=== PATIENT | male | born 1960 | race African-American/Black ===

== ENCOUNTER → 2019-07-05 | Outpatient (CLI) | payer OTHER ==
--- NOTE | 2019-07-05 13:46 | US ---
EXAMINATION TYPE: US kidneys/renal and bladder DATE OF EXAM: 07/05/2019 COMPARISON: CT 05/03/16 CLINICAL HISTORY: N39.0 recurrent UTI. EXAM MEASUREMENTS: Right Kidney: 12.8 x 7.4 x 6.3 cm Left Kidney: 12.0 x 5.8 x 5.7 cm Post Void Residual Volume: 12.6 mL Right Kidney: No hydronephrosis, nephrolithiasis or masses seen Left Kidney: No hydronephrosis, nephrolithiasis or masses seen Bladder: wnl Bilateral Jets seen: Yes Normal Post Void Residual: Yes IMPRESSION: No acute process.
--- NOTE | 2019-07-05 14:00 | XR ---
EXAMINATION TYPE: XR shoulder complete LT DATE OF EXAM: 07/05/2019 COMPARISON: NONE HISTORY: Pain TECHNIQUE: Three views are submitted. FINDINGS: The osseous structures are intact. There is no acute fracture or dislocation. Mild arthropathy of th e AC joint. IMPRESSION: 1. Mild AC joint arthropathy.
== END | disposition home or self-care (01) ==
LOC: RADUSWWP 13:04
PROVIDERS: ATTEND Internal Medicine
DX: N39.0 Urinary tract infection, site not specified (principal); M19.012 Primary osteoarthritis, left shoulder
CPT/HCPCS: 76770

== ENCOUNTER 2019-07-18 06:56 | Emergency (ER) | payer OTHER ==
[2019-07-18 07:18] VITALS: BP 140/80; PULSE 80; TEMP 98.4
[2019-07-18 07:38] VITALS: RESP 16
--- NOTE | 2019-07-18 07:44 | ED ---
General Adult HPI - General Chief complaint: Upper Respiratory Infection Stated complaint: sandrine Time Seen by Provider: 07/18/19 07:10 Source: patient, RN notes reviewed, old records reviewed Mode of arrival: ambulatory Limitations: no limitations - History of Present Illness Initial comments: 59-year-old male presenting with 1 week of nasal congestion, cough, sore throat. Patient has had minimally productive cough as well as nasal congestion and nasal drainage. He's had a sore throat. Denies myalgias. Denies fever or chills. Denies abdominal pain nausea vomiting. Denies chest pain. He states that some mild dyspnea with his cough. He is a current smoker. He has history of hypertension and diabetes. - Related Data Home Medications Medication Instructions Recorded Confirmed Lisinopril/Hydrochlorothiazide 1 tab PO DAILY 05/03/16 05/03/16 [Zestoretic 20-25] Metoprolol Succinate [Toprol XL] 1 tab PO DAILY 05/03/16 05/03/16 Previous Rx's Medication Instructions Recorded Acetaminophen with Codeine 1 tab PO Q4H PRN #20 tab 05/03/16 [Tylenol w/codeine #3] Omeprazole 20 mg PO DAILY #30 cap 05/03/16 Ondansetron HCl [Zofran] 4 mg PO Q8HR #30 tab 05/03/16 Albuterol Inhaler [Ventolin Hfa 1 - 2 puff INHALATION Q4HR PRN #1 07/18/19 Inhaler] inhaler Azithromycin [Zithromax Z-pack] 0 mg PO DIRECTED #6 tab 07/18/19 methylPREDNISolone Dose Pack 4 mg PO DIRECTED #21 package 07/18/19 [Medrol Dose Pack] Allergies Allergy/AdvReac Type Severity Reaction Status Date / Time No Known Allergies Allergy Verified 07/18/19 07:17 Review of Systems ROS Statement: Those systems with pertinent positive or pertinent negative responses have been documented in the HPI. ROS Other: All systems not noted in ROS Statement are negative. Constitutional: Denies: fever, chills ENT: Reports: throat pain, congestion. Denies: ear pain Respiratory: Reports: cough Cardiovascular: Denies: chest pain, palpitations Endocrine: Reports: fatigue Gastrointestinal: Denies: abdominal pain, nausea, vomiting Genitourinary: Denies: urgency, dysuria Musculoskeletal: Denies: back pain Skin: Denies: rash, lesions Neurological: Denies: weakness, numbness Past Medical History Past Medical History: Diabetes Mellitus, Hyperlipidemia, Hypertension History of Any Multi-Drug Resistant Organisms: None Reported Past Surgical History: No Surgical Hx Reported Past Psychological History: No Psychological Hx Reported Smoking Status: Current every day smoker Past Alcohol Use History: Occasional Past Drug Use History: None Reported General Exam Limitations: no limitations General appearance: alert, in no apparent distress Head exam: Present: atraumatic, normocephalic Eye exam: Present: normal appearance, PERRL. Absent: conjunctival injection, periorbital swelling, periorbital tenderness ENT exam: Present: mucous membranes moist. Absent: normal oropharynx (Pharyngeal erythema, no tonsillar swelling or exudate, symmetric posterior oropharynx) Neck exam: Present: normal inspection. Absent: tenderness Respiratory exam: Present: rhonchi (Left midlung field). Absent: respiratory distress Cardiovascular Exam: Present: regular rate, normal rhythm GI/Abdominal exam: Present: soft. Absent: distended, tenderness Rectal exam: Present: deferred Extremities exam: Present: normal inspection, normal capillary refill. Absent: pedal edema, calf tenderness Neurological exam: Present: alert, oriented X3, CN II-XII intact. Absent: motor sensory deficit Psychiatric exam: Present: normal affect, normal mood Course Vital Signs 07/18/19 07/18/19 07:15 07:36 Temperature 98.4 F Pulse Rate 80 Respiratory 20 16 Rate Blood Pressure 140/80 O2 Sat by Pulse 96 Oximetry Medical Decision Making - Medical Decision Making 59-year-old male with one-week history of cough, congestion, sore throat. Patient has rhonchi and left midlung field. X-rays obtained, Increased lung markings consistent with chronic bronchitis. No focal pneumonia. Patient is encouraged to abstain from smoking. Patient is otherwise well-appearing. Given his current smoking history he will be treated with course of albuterol, steroids, and azithromycin. Disposition Clinical Impression: Bronchitis Disposition: HOME SELF-CARE Condition: Good Instructions (If sedation given, give patient instructions): Acute Bronchitis (ED), How to Stop Smoking (ED) Prescriptions: methylPREDNISolone Dose Pack [Medrol Dose Pack] 4 mg PO DIRECTED #21 package Albuterol Inhaler [Ventolin Hfa Inhaler] 1 - 2 puff INHALATION Q4HR PRN #1 inhaler PRN Reason: Shortness Of Breath Azithromycin [Zithromax Z-pack] 0 mg PO DIRECTED #6 tab Is patient prescribed a controlled substance at d/c from ED?: No Referrals: Val Yang MD [Primary Care Provider] - 1-2 days Time of Disposition: 07:44
--- NOTE | 2019-07-18 08:02 | XR ---
EXAMINATION TYPE: XR chest 2V DATE OF EXAM: 07/18/2019 HISTORY: cough. REFERENCE: NONE. FINDINGS: There are mild increased markings throughout the chest. There is no focal consolidation or definite edema. The heart is not enlarged. Pleural spaces are clear. IMPRESSION: MILD INCREASED MARKINGS MAY BE ON THE BASIS OF CHRONIC BRONCHITIS. NO LOBAR CONSOLIDATION IS SEEN.
== END 2019-07-18 08:19 | disposition home or self-care (01) ==
LOC: EC 06:56
DX: J40 Bronchitis, not specified as acute or chronic (principal); J02.9 Acute pharyngitis, unspecified; R09.81 Nasal congestion; J34.89 Other specified disorders of nose and nasal sinuses; I10 Essential (primary) hypertension; F17.200 Nicotine dependence, unspecified, uncomplicated; Z79.899 Other long term (current) drug therapy
CPT/HCPCS: 71046; 99285

== ENCOUNTER → 2021-11-01 | Outpatient (CLI) | payer OTHER ==
--- NOTE | 2021-11-01 15:39 | US ---
EXAMINATION TYPE: US kidneys/renal and bladder DATE OF EXAM: 11/01/2021 COMPARISON: 07/05/2019 CLINICAL HISTORY: 61-year-old male N39.0 UTI. Abnormal frequency TECHNIQUE: Multiple sonographic images of the kidneys and bladder are obtained. FINDINGS: EXAM MEASUREMENTS: Right Kidney: 11.6 x 5.8 x 6.5 cm Left Kidney: 11.3 x 5.3 x 5.3 cm Right Kidney: No hydronephrosis or masses seen Left Kidney: No hydronephrosis or masses seen Bladder: Internal echoes seen Bilateral Jets seen IMPRESSION: 1. No hydronephrosis. 2. Some floating debris within the bladder. Correlate with urinalysis.
== END | disposition home or self-care (01) ==
LOC: RADUSWWP 12:37
PROVIDERS: ATTEND Family Medicine
DX: N39.0 Urinary tract infection, site not specified (principal)
CPT/HCPCS: 76770

== ENCOUNTER → 2021-12-24 | Outpatient (CLI) | payer OTHER ==
--- NOTE | 2021-12-24 09:57 | CT ---
EXAMINATION TYPE: CT urogram wo/w con DATE OF EXAM: 12/24/2021 INDICATION: microscopic hematuria, bladder pain CT DLP: 3580 mGy.cm Automated Exposure Control for Dose Reduction was Utilized. TECHNIQUE AND CONTRAST: CT scan of the abdomen and pelvis is performed without and with IV Contrast, as per CT urogram protoc ol. The patient injected with 100 mL of Isovue 300. 3-D reconstruction images were generated on an in dependent workstation and reviewed. COMPARISON: CT dated 05/03/2016 FINDINGS: No radiodense urinary calculi. No hydroureter or hydronephrosis. Bilateral perinephric fat stranding and reactive fluid, nonspecific. No definite renal lesion identified. No filling defect seen within t he renal collecting system or the opacified portion of the ureters. Slightly prominent prostate. Mild diffuse wall thickening of the urinary bladder, nonspecific, please correlate with urinalysis results to rule out mild cystitis. No other definite urinary bladder abnor mality identified. Unremarkable seminal vesicles. Bulky liver with evident hepatic steatosis. With this limitation, no definite hepatic focal lesion id entified. Unremarkable gallbladder, spleen, pancreas and adrenals. Scattered arterial atherosclerotic calcifications. Unremarkable stomach, duodenum and small bowel. Scattered uncomplicated colonic diverticulosis. No gross colonic mass however a small lesion cannot b e excluded. No suspicious lymphadenopathy or sizable ascites. Unremarkable lung bases. Millimetric sc lerotic foci in the pelvic bones, possibly representing bone islands. No aggressive bone lesion. IMPRESSION: No radiodense urinary calculi. No definite suspicious urinary lesion identified. Diffuse wall thicken ing of the urinary bladder which could be related to mild cystitis, please correlate clinically and w ith urinalysis results. Other incidental findings as described above.
== END | disposition home or self-care (01) ==
LOC: RADCTMAIN 06:58
PROVIDERS: ATTEND Urology
DX: N32.89 Other specified disorders of bladder (principal)
CPT/HCPCS: 82565; 84520; 74178; 36415; 74400; Q9967

== ENCOUNTER → 2022-06-04 | Outpatient (CLI) | payer OTHER ==
[2022-06-04 14:18] LABS: Basophils # (A) 0.08 X 10*3/uL (0.00-0.10); Basophils % (A) 0.9 %; Eosinophils # (A) 0.18 X 10*3/uL (0.04-0.35); Eosinophils % (A) 2.1 %; HCT 46.2 % (39.6-50.0); HGB 15.1 g/dL (13.0-17.0); Immature Grans, Automated 0.6 %; Lymphocytes # (A) 4.31 X 10*3/uL (0.90-5.00); Lymphocytes % (A) 49.4 %; MCH 28.3 pg (27.0-32.0); MCHC 32.7 g/dL (32.0-37.0); MCV 86.7 fL (80.0-97.0); Monocytes # (A) 0.48 X 10*3/uL (0.20-1.00); Monocytes % (A) 5.5 %; NRBC Per 100 WBC 0 /100 WBCS (0.0-0.0); Neutrophils # (A) 3.63 X 10*3/uL (1.80-7.70); Neutrophils % (A) 41.5 %; Platelet Count 190 X 10*3/uL (140-440); RBC 5.33 X 10*6/uL (4.40-5.60); RDW 13.1 % (11.5-14.5); WBC 8.73 X 10*3/uL (4.50-10.00)
[2022-06-04 15:07] LABS: ALT 68 U/L (10-49); AST 29 U/L (14-35); African American GFR (CKD) 88.8 (60.0-200.0); Albumin 4.5 g/dL (3.8-4.9); Alkaline Phosphatase 78 U/L (41-126); Calcium 9.8 mg/dL (8.7-10.3); Carbon Dioxide 26.1 mmol/L (20.0-27.5); Chloride 100 mmol/L (96-109); Chol/HDL Ratio 9.03 Ratio; Globulin 3.2 g/dL (1.6-3.3); Glucose 188 mg/dL (70-110); LDL Cholesterol,Calculated 169.7 mg/dL (0.0-131.0); Non-African American GFR(CKD) 76.6 (60.0-200.0); Potassium 4.6 mmol/L (3.5-5.5); Sodium 138 mmol/L (135-145); Total Protein 7.7 g/dL (6.2-8.2)
== END | disposition home or self-care (01) ==
LOC: LABWHC1 09:26
PROVIDERS: ATTEND Family Medicine
DX: E11.9 Type 2 diabetes mellitus without complications (principal)
CPT/HCPCS: 36415; 80053; 80061; 83036; 85025

== ENCOUNTER 2022-06-25 12:04 | Observation (INO) | payer OTHER ==
--- NOTE | 2022-06-25 13:10 | ED ---
General Adult HPI - General Chief complaint: Dizziness Stated complaint: dizziness - sent by pcp Time Seen by Provider: 06/25/22 12:30 Source: patient, RN notes reviewed, old records reviewed Mode of arrival: ambulatory Limitations: no limitations - History of Present Illness Initial comments: This is a 62-year-old male with a past medical history significant for diabetes hypertension high cholesterol and smoking. Patient states since Friday he's bee n having dizzy episodes where he feels like he is moving relative to the surrounding area. Patient states he has had it occurred multiple times throughout today and it does seem to worsen most of the time with motion. Patient states when it occurs it feels like he has to grab onto something or els e he might fall over. Patient denies any near syncopal or syncopal episode. Patient states he never feels like he is going to pass out. Patient states she has a little bit of a right-sided headache. Patient denies any chest pain or palpitations or shortness of breath. Patient denies any recent fever chills or cough. Patient states his been ongoing every single day for the last 5 days but there are times during the day that it doesn't seem to be happening. Patient states it's much worse when he is walking. Patient denies any numbness or weakness or speech problems. Patient has not experienced this before. Patient denies any tinnitus or new deafness. Currently patient is having no symptoms of dizziness - Related Data Home Medications Medication Instructions Recorded Confirmed Lisinopril/Hydrochlorothiazide 1 tab PO DAILY 05/03/16 06/25/22 [Zestoretic 20-25] Metoprolol Succinate [Toprol XL] 200 mg PO DAILY 05/03/16 06/25/22 Latanoprost [Latanoprost 0.005%] 1 drop BOTH EYES HS 06/25/22 06/25/22 metFORMIN HCL [Glucophage] 500 mg PO BID 06/25/22 06/25/22 Allergies Allergy/AdvReac Type Severity Reaction Status Date / Time No Known Allergies Allergy Verified 06/25/22 14:42 Review of Systems ROS Statement: Those systems with pertinent positive or pertinent negative responses have been documented in the HPI. ROS Other: All systems not noted in ROS Statement are negative. Past Medical History Past Medical History: Diabetes Mellitus, Hyperlipidemia, Hypertension History of Any Multi-Drug Resistant Organisms: None Reported Past Surgical History: No Surgical Hx Reported Past Psychological History: No Psychological Hx Reported Smoking Status: Current every day smoker Past Alcohol Use History: Rare Past Drug Use History: None Reported General Exam - General Exam Comments Initial Comments: GENERAL: Patient is well-developed and well-nourished. Patient is nontoxic and well- hydrated and is in no acute distress. ENT: Neck is soft and supple. No significant lymphadenopathy is noted. Oropharynx is clear. Moist mucous membranes. Neck has full range of motion without eliciting any pain. EYES: The sclera were anicteric and conjunctiva were pink and moist. Extraocular movements were intact and pupils were equal round and reactive to light. Eyelids were unremarkable. PULMONARY: Unlabored respirations. Good breath sounds bilaterally. No audible rales rh onchi or wheezing was noted. CARDIOVASCULAR: There is a regular rate and rhythm without any murmurs gallops or rubs. ABDOMEN: Soft and nontender with normal bowel sounds. SKIN: Skin is clear with no lesions or rashes and otherwise unremarkable. NEUROLOGIC: Patient is alert and oriented x3. Cranial nerves II through XII are grossly intact. Motor and sensory are also intact. Normal speech, volume and content. Symmetrical smile. Cerebellar testing finger to nose is normal bilaterally MUSCULOSKELETAL: Normal extremities with adequate strength and full range of motion. LYMPHATICS: No significant lymphadenopathy is noted PSYCHIATRIC: Normal psychiatric evaluation. Limitations: no limitations Course Vital Signs 06/25/22 06/25/22 06/25/22 12:21 13:13 16:27 Temperature 98 F Pulse Rate 65 77 68 Respiratory 18 16 17 Rate Blood Pressure 162/87 184/90 148/82 O2 Sat by Pulse 97 100 99 Oximetry Medical Decision Making - Medical Decision Making EKG shows sinus rhythm at 70 bpm ID interval is 2:15 QRS is 102 QT interval 408 QTC is 428. Patient's EKG shows no ST segment elevation or depression patient does have Q waves inferiorly in leads 3 and aVF patient is not currently expressing any chest pain and has not expressed any chest pain lately CT of the brain shows no acute abnormality CT angiogram head and neck showed possible stenosis of her vertebral arterie I spoke with Dr. Molina the neurologist and he wanted the patient be admitted so he could further evaluate the patient. I was found physicians they agreed to admit the patient to the patient wrote admitting orders I consulted neurology - Lab Data Result diagrams: 06/25/22 13:07 06/25/22 13:07 Lab Results 06/25/22 06/25/22 06/25/22 Range/Units 13:07 13:07 13:07 WBC 9.1 (3.8-10.6) k/uL RBC 5.33 (4.30-5.90) m/uL Hgb 15.9 (13.0-17.5) gm/dL Hct 46.0 (39.0-53.0) % MCV 86.2 (80.0-100.0) fL MCH 29.9 (25.0-35.0) pg MCHC 34.7 (31.0-37.0) g/dL RDW 12.4 (11.5-15.5) % Plt Count 205 (150-450) k/uL MPV 9.7 Neutrophils % 58 % Lymphocytes % 34 % Monocytes % 4 % Eosinophils % 2 % Basophils % 1 % Neutrophils # 5.3 (1.3-7.7) k/uL Lymphocytes # 3.1 (1.0-4.8) k/uL Monocytes # 0.3 (0-1.0) k/uL Eosinophils # 0.1 (0-0.7) k/uL Basophils # 0.1 (0-0.2) k/uL PT 11.0 (9.0-12.0) sec INR 1.0 (<1.2) APTT 27.8 (22.0-30.0) sec Sodium 138 (137-145) mmol/L Potassium 4.9 (3.5-5.1) mmol/L Chloride 100 (98-107) mmol/L Carbon Dioxide 24 (22-30) mmol/L Anion Gap 14 mmol/L BUN 19 (9-20) mg/dL Creatinine 1.05 (0.66-1.25) mg/dL Est GFR (CKD-EPI)AfAm 88 (>60 ml/min/1.73 sqM) Est GFR (CKD-EPI)NonAf 76 (>60 ml/min/1.73 sqM) Glucose 165 H (74-99) mg/dL Calcium 10.0 (8.4-10.2) mg/dL Magnesium 1.9 (1.6-2.3) mg/dL Total Bilirubin 0.4 (0.2-1.3) mg/dL AST 33 (17-59) U/L ALT 55 H (4-49) U/L Alkaline Phosphatase 86 (38-126) U/L Troponin I (0.000-0.034) ng/mL Total Protein 8.3 H (6.3-8.2) g/dL Albumin 4.9 (3.5-5.0) g/dL 06/25/22 Range/Units 13:07 WBC (3.8-10.6) k/uL RBC (4.30-5.90) m/uL Hgb (13.0-17.5) gm/dL Hct (39.0-53.0) % MCV (80.0-100.0) fL MCH (25.0-35.0) pg MCHC (31.0-37.0) g/dL RDW (11.5-15.5) % Plt Count (150-450) k/uL MPV Neutrophils % % Lymphocytes % % Monocytes % % Eosinophils % % Basophils % % Neutrophils # (1.3-7.7) k/uL Lymphocytes # (1.0-4.8) k/uL Monocytes # (0-1.0) k/uL Eosinophils # (0-0.7) k/uL Basophils # (0-0.2) k/uL PT (9.0-12.0) sec INR (<1.2) APTT (22.0-30.0) sec Sodium (137-145) mmol/L Potassium (3.5-5.1) mmol/L Chloride (98-107) mmol/L Carbon Dioxide (22-30) mmol/L Anion Gap mmol/L BUN (9-20) mg/dL Creatinine (0.66-1.25) mg/dL Est GFR (CKD-EPI)AfAm (>60 ml/min/1.73 sqM) Est GFR (CKD-EPI)NonAf (>60 ml/min/1.73 sqM) Glucose (74-99) mg/dL Calcium (8.4-10.2) mg/dL Magnesium (1.6-2.3) mg/dL Total Bilirubin (0.2-1.3) mg/dL AST (17-59) U/L ALT (4-49) U/L Alkaline Phosphatase (38-126) U/L Troponin I <0.012 (0.000-0.034) ng/mL Total Protein (6.3-8.2) g/dL Albumin (3.5-5.0) g/dL Disposition Clinical Impression: Dizziness, Vertebral artery narrowing Disposition: ADMITTED IP TO THIS HOSP Referrals: Brendan Hinton MD [Primary Care Provider] - 1-2 days Time of Disposition: 16:54
[2022-06-25 13:16] LABS: Basophils # (A) 0.1 k/uL (0-0.2); Basophils % (A) 1 %; Eosinophils # (A) 0.1 k/uL (0-0.7); Eosinophils % (A) 2 %; HGB 15.9 gm/dL (13.0-17.5); Lymphocytes # (A) 3.1 k/uL (1.0-4.8); Lymphocytes % (A) 34 %; MCH 29.9 pg (25.0-35.0); MCHC 34.7 g/dL (31.0-37.0); MCV 86.2 fL (80.0-100.0); Mean Platelet Volume 9.7; Monocytes # (A) 0.3 k/uL (0-1.0); Monocytes % (A) 4 %; Neutrophils # (A) 5.3 k/uL (1.3-7.7); Neutrophils % (A) 58 %; Platelet Count 205 k/uL (150-450); RBC 5.33 m/uL (4.30-5.90); RDW 12.4 % (11.5-15.5); WBC 9.1 k/uL (3.8-10.6)
[2022-06-25 13:27] LABS: Albumin 4.9 g/dL (3.5-5.0); Magnesium 1.9 mg/dL (1.6-2.3); Potassium 4.9 mmol/L (3.5-5.1); Total Bilirubin 0.4 mg/dL (0.2-1.3); Total Protein 8.3 g/dL (6.3-8.2)
--- NOTE | 2022-06-25 14:00 | XR ---
EXAMINATION TYPE: XR chest 2V DATE OF EXAM: 06/25/2022 COMPARISON: 07/18/2019 HISTORY: 62-year-old male with chest pain TECHNIQUE: PA and lateral views FINDINGS: Heart normal size. Aorta and pulmonary vasculature within normal. Mild interstitial prominence is unc hanged. No consolidation or pleural effusion. IMPRESSION: Chronic changes, possible underlying bronchitis or asthma. No focal infiltrate seen.
[2022-06-25 14:01] LABS: Partial Thromboplastin Time 27.8 sec (22.0-30.0)
--- NOTE | 2022-06-25 14:32 | CT ---
EXAMINATION TYPE: CT brain wo con DATE OF EXAM: 06/25/2022 COMPARISON: None HISTORY: Dizziness CT DLP: 1220 mGycm Automated exposure control for dose reduction was used. FINDINGS: Artifact limits assessment of the posterior fossa. Patient has previous stent of hardware. Mild gener alized degenerative change and faint low-attenuation white matter is not. No definite sulcal effaceme nt. No midline shift or mass effect. Orbits are symmetric. Nasal septal deviation. Calvarium intact. Low density seen along the anterior m argin of the left temporal lobe image 26 is likely artifactual. Slight asymmetry in the density of th e left MCA also noted also felt to be most likely related to partial volume averaging or artifactual. CTA [place] recommended for confirmation Craniocervical junction maintained. IMPRESSION: 1. DEGENERATIVE AND NONSPECIFIC WHITE MATTER CHANGE WITH NO DEFINITE ACUTE HEMORRHAGE OR MASS EFFECT. 2. LIMITED ASSESSMENT OF THE POSTERIOR FOSSA DUE TO EXTENSIVE ARTIFACT. 3. THERE IS AN AREA OF LOW DENSITY IN THE ANTERIOR MARGIN OF THE LEFT TEMPORAL LOBE FELT TO BE MOST L IKELY ARTIFACTUAL 26. THERE IS SLIGHTLY INCREASED DENSITY IN THE LEFT MCA BRANCH. THIS ALSO COULD BE ARTIFACTUAL BUT CTA [place] RECOMMENDED.
--- NOTE | 2022-06-25 14:50 | CT ---
EXAMINATION TYPE: CT angio head neck DATE OF EXAM: 06/25/2022 HISTORY: Dizziness COMPARISON: CT brain 06/25/2022 CT DLP: 757.7 mGycm. Automated Exposure Control for Dose Reduction was Utilized. TECHNIQUE: CTA scan of the head and neck is performed without and with IV Contrast, patient injected with 65 ml mL of Isovue 370, axial images are obtained, coronal and sagittal reformatted images are reviewed. 3D reconstructed images are created on an independent workstation and reviewed. FINDINGS: Carotid/Vascular Structures: Transverse aorta is patent, the innominate, left common carotid, right c ommon carotid, left and right subclavian arteries are patent, internal and external carotid arteries are patent, proximal left internal carotid artery shows mild atheromatous change greater than right. The vertebral arteries show some atheromatous change. Proximal right vertebral artery appears diminut oj, possibly stenotic, possible segmental enhancement, there is artifact. No evident dissection, lef t vertebral artery is dominant. Within the brain, the A1 segment of the internal carotid artery on the left appears atrophic. No evid ent aneurysm or dissection, no evident embolus. Other: Thyroid nodules are noted incidentally. Degenerative disc changes, multilevel facet arthropath y noted within the cervical spine. IMPRESSION: Atrophic A1 segment of the left internal carotid artery, possible stenosis of the proxima l right vertebral artery. No evident significant carotid artery stenosis.. NASCET criteria was used in interpretation of this exam?
[2022-06-25] MEDS ORDERED: ASPIRIN 325 MG TAB PO STA (17:06)
[2022-06-25] MEDS ORDERED: DEXTROSE 50% SYRINGE 50 ML IVP PRN ×2 (18:45)
--- NOTE | 2022-06-25 18:48 | P.HPIM ---
History of Present Illness H&P Date: 06/25/22 Chief Complaint: Dizziness Patient is a 62-year-old male with a past medical history of diabetes, hypertension and smoking who presents to the ED with dizziness as if the room is spinning around him for the past 5 days. Patient states that he's never had symptoms like this before. He believes his symptoms may be worse with movement. When I saw him in the ED patient states that his symptoms had resolved. Patient also did move his head [id number] and said that he is now not having any more dizziness. Patient stated this the first time is admitted to the hospital and he feels anxious. In the ED patient CTA head showed possible stenosis of the proximal right vertebral artery. Patient was then referred for admission. Review of Systems 10 ROS reviewed and are negative except as noted in HPI Past Medical History Past Medical History: Diabetes Mellitus, Hyperlipidemia, Hypertension History of Any Multi-Drug Resistant Organisms: None Reported Past Surgical History: No Surgical Hx Reported Past Psychological History: No Psychological Hx Reported Smoking Status: Current every day smoker Past Alcohol Use History: Rare Past Drug Use History: None Reported Medications and Allergies Home Medications Medication Instructions Recorded Confirmed Type Lisinopril/Hydrochlorothiazide 1 tab PO DAILY 05/03/16 06/25/22 History [Zestoretic 20-25] Metoprolol Succinate [Toprol XL] 200 mg PO DAILY 05/03/16 06/25/22 History Latanoprost [Latanoprost 0.005%] 1 drop BOTH EYES HS 06/25/22 06/25/22 History metFORMIN HCL [Glucophage] 500 mg PO BID 06/25/22 06/25/22 History Allergies Allergy/AdvReac Type Severity Reaction Status Date / Time No Known Allergies Allergy Verified 06/25/22 14:42 Physical Exam Osteopathic Statement: *. No significant issues noted on an osteopathic structural exam other than those noted in the History and Physical/Consult. Vitals: Vital Signs Temp Pulse Resp BP Pulse Ox 06/25/22 17:30 80 16 181/95 100 06/25/22 16:27 68 17 148/82 99 06/25/22 13:13 77 16 184/90 100 06/25/22 12:21 98 F 65 18 162/87 97 Intake and Output 06/25/22 06/25/22 06/25/22 06:59 14:59 22:59 Other: Weight 95.708 kg General: [Alert and oriented, well nourished, no acute distress]. Eye: [PERRL, EOMI, normal conjunctiva]. HENT: [Normocephalic, clear tympanic membranes, normal hearing, moist oral mucosa, no scleral icterus, no sinus tenderness]. Neck: [Supple, non-tender, no carotid bruits, no JVD, no lymphadenopathy]. Lungs: [Clear to auscultation and percussion, non-labored respiration]. Heart: [Normal rate, regular rhythm, no murmur, gallop or edema]. Abdomen: [Soft, non-tender, non-distended, normal bowel sounds, no masses]. Musculoskeletal: [Normal range of motion and strength, no tenderness or swelling]. Skin: [Skin is warm, dry and pink, no rashes or lesions]. Neurologic: [Awake, alert, and oriented X3, CN II-XII intact]. Psychiatric: [Cooperative, appropriate mood and affect]. Results CBC & Chem 7: 06/25/22 13:07 06/25/22 13:07 Labs: Abnormal Lab Results - Last 24 Hours (Table) 06/25/22 Range/Units 13:07 Glucose 165 H (74-99) mg/dL ALT 55 H (4-49) U/L Total Protein 8.3 H (6.3-8.2) g/dL Assessment and Plan Assessment: Dizziness Currently patient states that his symptoms have resolved We'll complete stroke workup Check MRI brain, check echo with bubble study Consult neurology Check lipid panel and hemoglobin A1c Resume aspirin Diabetes mellitus type 2 Check hemoglobin A1c Hold metformin and start sliding scale insulin and long-acting insulin Consult physical therapy Hypertension Resume home BP meds Tobacco abuse Patient counseled on smoking cessation CODE STATUS:full code DVT prophylaxis: mechanical Discussed with: Patient, ER, rn Anticipated length of stay < than [address]: home A total of 50 minutes was spent on the care of this complex patient more than 50% of the time was spent in counseling and care coordination.
[2022-06-25 19:37] LABS: Glucose,Whole Blood 130 mg/dL (70-110)
[2022-06-25] MEDS ORDERED: LATANOPROST 0.005% OPHTH DROPS 2.5 ML BTL BOTH EYES SCH (21:00)
[2022-06-25] MEDS ORDERED: INSULIN DETEMIR (LEVEMIR) 100 UNIT/ML SYR SQ SCH (21:00)
[2022-06-25 21:25] LABS: Glucose,Whole Blood 162 mg/dL (70-110)
[2022-06-25] MEDS: INSULIN ASPART (NovoLOG) 100 UNIT/ML VIAL SQ SCH (21:41)
[2022-06-26 07:30] LABS: Glucose,Whole Blood 116 mg/dL (70-110)
[2022-06-26 08:34] VITALS: RESP 16
[2022-06-26] MEDS: INSULIN ASPART (NovoLOG) 100 UNIT/ML VIAL SQ SCH ×2 (08:41→13:15)
[2022-06-26] MEDS ORDERED: ASPIRIN 325 MG TAB PO SCH (09:00)
[2022-06-26] MEDS ORDERED: METOPROLOL SUCCINATE (ER) 100 MG TAB.ER.24H PO SCH (09:00)
[2022-06-26] MEDS ORDERED: CLOPIDOGREL 75 MG TAB PO SCH (09:00)
[2022-06-26] MEDS ORDERED: LISINOPRIL-HCTZ 20-25 MG 1 EACH TAB PO SCH (09:00)
[2022-06-26 09:06] LABS: Chol/HDL Ratio 9.21 Ratio
--- NOTE | 2022-06-26 11:38 | P.PN ---
Subjective Progress Note Date: 06/26/22 Patient states that his dizziness has improved. He states that he walked in the hallways and he did not have any signs of dizziness. Objective - Vital Signs Vital signs: Vital Signs Temp 98.0 F 06/26/22 07:00 Pulse 61 06/26/22 08:00 Resp 16 06/26/22 08:00 BP 133/74 06/26/22 07:00 Pulse Ox 98 06/26/22 07:00 FiO2 Intake & Output 06/25/22 06/26/22 06/26/22 18:59 06:59 18:59 Weight 95.708 kg 95.708 kg Other: # Voids 2 - Exam General examination - Alert and Oriented 3 in NAD Heart - + S1S2 no murmurs Lungs - Clear to auscultation Abdomen soft NT ND +ve BS Extremities - No edema DIRECTOR OF OUTPATIENT SERVICES - Moving all 4 extremities spontaneously Psych - Calm and cooperative - Labs CBC & Chem 7: 06/25/22 13:07 06/25/22 13:07 Labs: Abnormal Lab Results - Last 24 Hours (Table) 06/25/22 06/25/22 06/25/22 Range/Units 13:07 19:33 21:24 Glucose 165 H (74-99) mg/dL POC Glucose (mg/dL) 130 H 162 H (70-110) mg/dL Hemoglobin A1c (0.0-6.0) % ALT 55 H (4-49) U/L Total Protein 8.3 H (6.3-8.2) g/dL Triglycerides (0.00-149.00) mg/dL Cholesterol (0.00-200.00) mg/dL LDL Cholesterol, Calc (0.0-131.0) mg/dL VLDL Cholesterol, Calc (5.00-40.00) mg/dL HDL Cholesterol (40.00-60.00) mg/dL 06/26/22 06/26/22 06/26/22 Range/Units 05:45 05:45 07:28 Glucose (74-99) mg/dL POC Glucose (mg/dL) 116 H (70-110) mg/dL Hemoglobin A1c 7.3 H (0.0-6.0) % ALT (4-49) U/L Total Protein (6.3-8.2) g/dL Triglycerides 378.00 H (0.00-149.00) mg/dL Cholesterol 234.00 H (0.00-200.00) mg/dL LDL Cholesterol, Calc 133.0 H (0.0-131.0) mg/dL VLDL Cholesterol, Calc 75.60 H (5.00-40.00) mg/dL HDL Cholesterol 25.40 L (40.00-60.00) mg/dL Assessment and Plan Assessment: Dizziness Currently patient states that his symptoms have resolved We'll complete stroke workup Check MRI brain, check echo with bubble study Consult neurology LDL is 133 so we'll start atorvastatin Hemoglobin A1c is 7.3 Resume aspirin Diabetes mellitus type 2 Hemoglobin A1c is 7.3 Hold metformin and start sliding scale insulin and long-acting insulin Hypertension Resume home BP meds Tobacco abuse Patient counseled on smoking cessation CODE STATUS:full code DVT prophylaxis: mechanical Anticipated length of stay < than [address]: home A total of 50 minutes was spent on the care of this complex patient more than 50% of the time was spent in counseling and care coordination.
[2022-06-26 12:12] LABS: Glucose,Whole Blood 175 mg/dL (70-110)
--- NOTE | 2022-06-26 13:33 | P.CNNES ---
History of Present Illness Consult date: 06/26/22 Requesting physician: Luis Daniel Troy Reason for Consult: Dizziness, vertebral artery stenosis History of Present Illness: Patient is a 62-year-old male came to the hospital yesterday at 12:04 PM Vital signs arrival blood pressure 162/87% [address] head showed degenerative and nonspecific white matter change with no definite acute hemorrhage or mass effect. Limited assessment of the posterior fossa due to extensive artifact. There is an 80 of low density in the anterior margin of the left temporal lobe felt to be most likely artifactual. There is slightly increased density in the left MCA branch. This also could be artifactual, but CTA of [place] of [place] recommended. I personally reviewed CT head. The left temporal lesion is not appreciated. CTA of head and neck revealed atrophic A1 segment of the left ICA, possible stenosis of the proximal right vertebral artery. No evident significant carotid artery stenosis. EKG shows sinus rhythm with first-degree AV block. Chest x- ray showed chronic changes, possibly underlying bronchitis or asthma. Blood test shows normal CBC, PT/PTT, normal CMP. ALT is mildly elevated 55 but normal AST 33. Troponin negative. Patient's home medications include metoprolol, lisinopril/HCTZ, metformin. Patient does not take any antiplatelet medication at home. Past Medical History Past Medical History: Diabetes Mellitus, Hyperlipidemia, Hypertension Additional Past Medical History / Comment(s): left leg small blockage. History of Any Multi-Drug Resistant Organisms: None Reported Past Surgical History: No Surgical Hx Reported Additional Past Surgical History / Comment(s): bilateral cataract sx Past Anesthesia/Blood Transfusion Reactions: No Reported Reaction Past Psychological History: No Psychological Hx Reported Smoking Status: Current every day smoker Past Alcohol Use History: Rare Additional Past Alcohol Use History / Comment(s): smokes 1/2-1 pack per day Past Drug Use History: None Reported - Past Family History Mother Family Medical History: Diabetes Mellitus, Hyperlipidemia, Hypertension, Renal Disease Father Family Medical History: Coronary Artery Disease (CAD), CVA/TIA, Myocardial Infarction (HI) Additional Family Medical History / Comment(s): cabbag Medications and Allergies Home Medications Medication Instructions Recorded Confirmed Type Lisinopril/Hydrochlorothiazide 1 tab PO DAILY 05/03/16 06/25/22 History [Zestoretic 20-25] Metoprolol Succinate [Toprol XL] 200 mg PO DAILY 05/03/16 06/25/22 History Latanoprost [Latanoprost 0.005%] 1 drop BOTH EYES HS 06/25/22 06/25/22 History metFORMIN HCL [Glucophage] 500 mg PO BID 06/25/22 06/25/22 History Allergies Allergy/AdvReac Type Severity Reaction Status Date / Time No Known Allergies Allergy Verified 06/25/22 14:42 Physical Examination - Vital Signs Vital Signs: Vital Signs Temp Pulse Pulse Resp BP BP Pulse Ox 06/26/22 08:00 61 16 06/26/22 07:00 98.0 F 61 16 133/74 98 06/26/22 02:50 98.1 F 63 18 127/69 99 06/25/22 21:28 98.1 F 69 17 159/78 98 06/25/22 20:01 98.1 F 69 18 156/89 100 06/25/22 17:30 80 16 181/95 100 06/25/22 16:27 68 17 148/82 99 06/25/22 13:13 77 16 184/90 100 06/25/22 12:21 98 F 65 18 162/87 97 Intake and Output 06/25/22 06/26/22 06/26/22 22:59 06:59 14:59 Other: # Voids 1 2 Weight 95.708 kg Results - Laboratory Findings CBC and BMP: 06/25/22 13:07 06/25/22 13:07 Abnormal Lab Findings: Abnormal Labs 06/25/22 06/25/22 06/25/22 13:07 19:33 21:24 Glucose 165 H POC Glucose (mg/dL) 130 H 162 H Hemoglobin A1c ALT 55 H Total Protein 8.3 H Triglycerides Cholesterol LDL Cholesterol, Calc VLDL Cholesterol, Calc HDL Cholesterol 06/26/22 06/26/22 06/26/22 05:45 05:45 07:28 Glucose POC Glucose (mg/dL) 116 H Hemoglobin A1c 7.3 H ALT Total Protein Triglycerides 378.00 H Cholesterol 234.00 H LDL Cholesterol, Calc 133.0 H VLDL Cholesterol, Calc 75.60 H HDL Cholesterol 25.40 L Assessment and Plan Assessment: * Recurrent brief episodes of imbalance, lasting for a few seconds to a few minutes. Exact cause uncertain. Differential includes possible peripheral vestibular dysfunction versus ?TIA in vertebrobasilar system. Current neurological examination is normal. * Diabetes, not very well controlled * Hyperlipidemia * Hypertension * Tobacco use Plan: * Carotid Doppler is normal. * 2-D echo pending. * Hemoglobin A1c 7.9. Recommend optimize control of diabetes to target A1c <7.0 * Optimize control of blood pressure to < 130/90. * Complete tobacco cessation. * Start aspirin regimen. No need for dual antiplatelet medication. Recommend patient start taking aspirin 81 mg, 2 tablets for 6 weeks and then start taking 1 tablet a day. * Patient's symptoms are very brief. Current examination is normal. MRI has extremely low yield. No indication for MRI, as it will not change the management as above. * Follow up with primary physician to address all risk factors as above. * Neurologically clear, if the echo comes back normal. Discussed with patient's nurse.
--- NOTE | 2022-06-26 14:35 | P.DS ---
Providers Date of admission: 06/25/22 17:09 Expected date of discharge: 06/26/22 Attending physician: Leora Barry DO Consults: 06/25/22 17:07 Consult Physician Routine Consulting Provider: Angie Garcia Consult Reason/Comments: Dizziness, vertebral artery stenosis Do you want consulting provider notified?: Yes Primary care physician: Brendan Hinton Hospital Course: Discharge Diagnosis: Dizziness could be due to TIA Hypertension Diabetes Hyperlipidemia Hospital Course: Patient is a 62-year-old male with a past medical history of hypertension diabetes hyperlipidemia who presents with episodes of intermittent dizziness. Patient in the ED had a CT head and CTA head and neck that were unremarkable. Patient was then referred for admission. Patient was seen by neurology the following day. Since patient's symptoms completely resolved neurology did not think an MRI was needed. Patient was cleared by neurology for discharge. Patient's LDL was 133 so I started him on atorvastatin. Neurology recommended 6 weeks of 162 mg aspirin and then 81 mg aspirin daily. I also recommended patient to follow-up with cardiology for a loop recorder. Patient deemed stable for discharge home. He is looking forward to going home. Patient seen and examined at bedside.[] Vital signs reviewed and stable. General: [non toxic], [no distress], [appears at stated age] Derm: [warm], [dry] Head: [atraumatic], [normocephalic], [symmetric] Eyes: [EOMI], [no lid lag], [anicteric sclera] Mouth: [no lip lesion], [mucus membranes moist] Cardiovascular: [S1S2 reg], [no murmur], [positive posterior tibial pulse bilateral], Lungs: [CTA bilateral], [no rhonchi, no rales] , [no accessory muscle use] Abdominal: [soft], [ nontender to palpation], [no guarding], [no appreciable organomegaly] Ext: [no gross muscle atrophy], [no edema], [no contractures] Neuro: [ CN II-XI grossly intact], [no focal neuro deficits] Psych: [Alert], [oriented], [appropriate affect] A total of [33] minutes of time were spent preparing this complex discharge summary . Patient Condition at Discharge: Good Plan - Discharge Summary New Discharge Prescriptions: New Atorvastatin [Lipitor] 40 mg PO HS 30 Days #30 tab Aspirin [Durlaza] 162.5 mg PO DAILY #42 cap Continue Metoprolol Succinate [Toprol XL] 200 mg PO DAILY Lisinopril/Hydrochlorothiazide [Zestoretic 20-25] 1 tab PO DAILY Latanoprost [Latanoprost 0.005%] 1 drop BOTH EYES HS metFORMIN HCL [Glucophage] 500 mg PO BID Discharge Medication List Lisinopril/Hydrochlorothiazide [Zestoretic 20-25] 1 tab PO DAILY 05/03/16 [History] Metoprolol Succinate [Toprol XL] 200 mg PO DAILY 05/03/16 [History] Latanoprost [Latanoprost 0.005%] 1 drop BOTH EYES HS 06/25/22 [History] metFORMIN HCL [Glucophage] 500 mg PO BID 06/25/22 [History] Aspirin [Durlaza] 162.5 mg PO DAILY #42 cap 06/26/22 [Rx] Atorvastatin [Lipitor] 40 mg PO HS 30 Days #30 tab 06/26/22 [Rx] Follow up Appointment(s)/Referral(s): Brendan Hinton MD [Primary Care Provider] - 1-2 days Geremias Zambrano MD [STAFF PHYSICIAN] - 1 Week Discharge Disposition: HOME SELF-CARE
[2022-06-26 15:01] VITALS: BP 152/84; PULSE 63; TEMP 98.2
[2022-06-26] MEDS ORDERED: ATORVASTATIN 40 MG TAB PO SCH (21:00)
--- NOTE | 2022-06-27 10:49 | CA ---
Transthoracic Echo Report Name: Rosales العلي Age: 62 Gender: M : 1960 Exam Date: 06/26/2022 08:27 Exam Location: [facility] Ht (in): 71 Wt (lb): 211 Ordering Physician: Risa Macias MD Attending/Referring Phys: Ceo Ziff Davis Lisa Brito RDCS Procedure CPT: Indications: tia Cardiac Hx: Technical Quality: Good Contrast 1: Total Dose (mL): Contrast 2: Total Dose (mL): MEASUREMENTS (Male / Female) Normal Values 2D ECHO LV Diastolic Diameter PLAX 4.2 cm 4.2 - 5.9 / 3.9 - 5.3 cm LV Systolic Diameter PLAX 2.6 cm IVS Diastolic Thickness 1.5 cm 0.6 - 1.0 / 0.6 - 0.9 cm LVPW Diastolic Thickness 1.3 cm 0.6 - 1.0 / 0.6 - 0.9 cm LV Relative Wall Thickness 0.7 RV Internal Dim ED PLAX 3.8 cm LA Systolic Diameter LX 4.0 cm 3.0 - 4.0 / 2.7 - 3.8 cm LA Volume 57.1 cm??? 18 - 58 / 22 - 52 cm??? M-MODE Aortic Root Diameter MM 3.4 cm MV E Point Septal Separation 0.8 cm AV Cusp Separation MM 2.3 cm DOPPLER MV Area PHT 3.7 cm??? Mitral E Point Velocity 85.5 cm/s Mitral A Point Velocity 70.4 cm/s Mitral E to A Ratio 1.2 MV Deceleration Time 204.1 ms MV E' Velocity 8.5 cm/s Mitral E to MV E' Ratio 10.1 FINDINGS Left Ventricle Left ventricular ejection fraction is estimated at 60-65 %. Moderately increased left ventricular wall thickness. Left ventricular cavity size normal. Right Ventricle Mild right ventricular dilatation. Unable to estimate the right ventricular systolic pressure. Right Atrium Normal right atrial size. Left Atrium Normal left atrial size. No evidence for an atrial septal defect. Mitral Valve Trace to mild mitral regurgitation. Aortic Valve Trileaflet aortic valve. No aortic valve stenosis or regurgitation. Tricuspid Valve Structurally normal tricuspid valve. Pulmonic Valve Structurally normal pulmonic valve. Pericardium Normal pericardium. No pericardial effusion. Aorta Normal size aortic root and proximal ascending aorta. CONCLUSIONS Left ventricular ejection fraction 60-65% Moderate increased left ventricular wall thickness Mild right ventricular dilation Trace to mild mitral regurgitation No pericardial effusion Previewed by: Dr. Alexandro Guerrero DO (Electronically Signed) Final Date: 27 June 2022 10:48
== END 2022-06-26 16:15 | disposition home or self-care (01) ==
LOC: EC 12:04 → 6NMEDSUR 17:09
PROVIDERS: ADMIT Internal Medicine; ATTEND Internal Medicine
DX: R42 Dizziness and giddiness (principal); I65.09 Occlusion and stenosis of unspecified vertebral artery; E11.9 Type 2 diabetes mellitus without complications; I10 Essential (primary) hypertension; E78.00 Pure hypercholesterolemia, unspecified; F17.200 Nicotine dependence, unspecified, uncomplicated; I44.0 Atrioventricular block, first degree; J34.2 Deviated nasal septum; E04.2 Nontoxic multinodular goiter; M50.30 Other cervical disc degeneration, unspecified cervical region; I34.0 Nonrheumatic mitral (valve) insufficiency; Z79.899 Other long term (current) drug therapy; Z79.84 Long term (current) use of oral hypoglycemic drugs; Z98.42 Cataract extraction status, left eye; Z98.41 Cataract extraction status, right eye; Z83.3 Family history of diabetes mellitus; Z82.49 Family history of ischemic heart disease and other diseases of the circulatory system; Z82.3 Family history of stroke
CPT/HCPCS: 99285; 36415; 93005; 93306; 97162; 97165; 80061; 80053; 83735; 84484; 85025; 85610; 85730; 83036; 71046; 70496; 70450; 70498; G0378 ×2; Q9967

== ENCOUNTER → 2022-09-18 | Outpatient (CLI) | payer OTHER ==
[2022-09-18 16:24] LABS: Chol/HDL Ratio 4.81 Ratio; LDL Cholesterol,Calculated 38.1 mg/dL (0.0-131.0)
[2022-09-18 16:40] LABS: ALT 60 U/L (10-49); AST 36 U/L (14-35)
== END | disposition home or self-care (01) ==
LOC: LABWHC1 09:25
PROVIDERS: ATTEND Internal Medicine Interventional Cardiology
DX: E78.2 Mixed hyperlipidemia (principal)
CPT/HCPCS: 36415; 80061; 84450; 84460